=== PATIENT | male | born 1995 | race Caucasian/White ===

== ENCOUNTER 2019-01-08 04:03 | Emergency (ER) | payer OTHER ==
[~2019-01-08] VITALS: Ht 170.2 cm; Wt 56.7 kg
[2019-01-08] MEDS ORDERED: AMOXICILLIN875 MG PO (04:34)
[2019-01-08 05:10] VITALS: BP 127/76
== END 2019-01-08 05:11 | disposition home or self-care (01) ==
LOC: ER 04:03
DX: J32.9 Chronic sinusitis, unspecified (principal)